=== PATIENT | male | born 1960 | race Caucasian/White ===

== ENCOUNTER 2020-05-02 20:35 | Emergency (ER) | payer OTHER ==
[~2020-05-02] VITALS: Ht 167.6 cm; Wt 70.8 kg
[2020-05-02 20:47] VITALS: Ht 167.6 cm; Wt 70.8 kg
[2020-05-02 21:45] VITALS: BP 118/63
== END 2020-05-02 22:10 | disposition home or self-care (01) ==
LOC: ED 20:35
DX: S71.111A Laceration without foreign body, right thigh, initial encounter (principal); W45.8XXA Other foreign body or object entering through skin, initial encounter; Y93.89 Activity, other specified; Y92.89 Other specified places as the place of occurrence of the external cause; Y99.8 Other external cause status